=== PATIENT | male | born 1980 | race Asian ===

== ENCOUNTER 2019-01-25 06:11 | Inpatient (IN) | payer OTHER ==
[~2019-01-25] VITALS: Ht 160 cm; Wt 68.3 kg
[2019-01-25] MEDS ORDERED: SOD CHLORIDE 0.9% 1,000 ML IV STA ×2 (06:33→09:43)
[2019-01-25] MEDS ORDERED: PANTOPRAZOLE 40 MG INJ IV STA (06:33)
[2019-01-25] MEDS ORDERED: ONDANSETRON 4 MG INJ IV STA (06:38)
[2019-01-25] MEDS ORDERED: ONDANSETRON 4 MG INJ IV PRN ×2 (08:30→10:30)
[2019-01-25] MEDS ORDERED: ACETAMINOPHEN 325 MG TAB PO PRN (08:30)
[2019-01-25] MEDS ORDERED: CHLO25CA9 PO (10:04)
[2019-01-25] MEDS ORDERED: FAMO40TA5 PO (10:05)
[2019-01-25] MEDS ORDERED: CYAN1TAB16 PO (10:08)
[2019-01-25] MEDS ORDERED: SOD CHLORIDE 0.9% 1,000 ML IV SCH (10:09)
--- NOTE | 2019-01-25 10:09 | HP ---
Date/Time of Note Date/Time of Note DATE: 01/25/19 TIME: 10:09 Assessment/Plan VTE Prophylaxis Pharmacological prophylaxis: NA/contraindicated Pharm contraindication: bleeding Lines/Catheters IV Catheter Type (from [facility]): Peripheral IV Assessment/Plan Hospital Course 38-year-old male with history of alcoholism who came to the emergency room with multiple episodes of hematemesis and a few episodes of melena, who will be admitted to inpatient setting for further treatment and evaluation. 1. Hematemesis with melena. -Most probably from upper gastrointestinal bleeding. -Differentials include bleeding esophageal varices versus Rimma-Adame tear versus bleeding and gastric ulcers. -Monitor the H&H periodically. -Continue the patient on Protonix. -Gastroenterology consult has been obtained. -PRBC transfusion as indicated. 2. Transaminitis. -Most probably secondary to underlying alcoholism. -Obtain a hepatitis panel. -Avoid hepatotoxic medications. 3. Alcoholism. -Current heavy alcohol drinker. -Start the patient on tapering dose of Librium. -Start the patient on IV lorazepam for any active DTs. -Start the patient on multivitamins. -Obtain social work consult. Plan: The patient will be admitted to inpatient medical surgical floor. The patient will be started on a clear liquid diet. The patient will be started on DVT prophylaxis (bilateral SCDs) and gastrointestinal prophylaxis. The patient will remain a full code. Activities will be as tolerated. The rest of the patient's management will be based on the clinical course, inputs from consultants, and the results of diagnostic studies. Based on the patient's clinical presentation, he most probably requires at least 2 midnights' stay for further management and evaluation of his clinical presentation. The patient was seen in collaboration with Dr. Draper. Result Diagram: 01/25/19 0656 01/25/19 0656 Results 24hrs Laboratory Tests Test 01/25/19 06:56 White Blood Count 8.0 Red Blood Count 4.58 L Hemoglobin 14.2 Hematocrit 41.3 L Mean Corpuscular Volume 90.2 Mean Corpuscular Hemoglobin 31.0 Mean Corpuscular Hemoglobin Concent 34.4 Red Cell Distribution Width 12.2 Platelet Count 178 Mean Platelet Volume 9.5 Immature Granulocytes % 0.100 Neutrophils % 75.4 Lymphocytes % 16.4 Monocytes % 6.9 Eosinophils % 0.9 Basophils % 0.3 Nucleated Red Blood Cells % 0.0 Immature Granulocytes # 0.010 Neutrophils # 6.0 Lymphocytes # 1.3 Monocytes # 0.6 Eosinophils # 0.1 Basophils # 0.0 Nucleated Red Blood Cells # 0.0 Prothrombin Time 18.1 H Prothrombin Time Ratio 1.4 INR International Normalized Ratio 1.49 Activated Partial Thromboplast Time 28.1 Sodium Level 136 Potassium Level 4.4 Chloride Level 103 Carbon Dioxide Level 23 Anion Gap 10 Blood Urea Nitrogen 25 H Creatinine 0.66 Est Glomerular Filtrat Rate mL/min > 60 Glucose Level 113 Calcium Level 7.5 L Total Bilirubin 1.2 Direct Bilirubin 0.00 Indirect Bilirubin 1.2 H Aspartate Amino Transf (AST/SGOT) 711 H Alanine Aminotransferase (ALT/SGPT) 965 H Alkaline Phosphatase 44 Troponin I 0.068 Total Protein 6.4 Albumin 3.9 Globulin 2.50 Albumin/Globulin Ratio 1.56 Lipase 40 HPI/ROS Admit Date/Time Admit Date/Time Jan 25, 2019 at 08:17 Hx of Present Illness Reason for admission: Hematemesis. Consultants 1. Gastroenterology. This is a 38-year-old male with no significant past medical history other than alcoholism who came to the emergency room with chief complaint of multiple episodes of bloody vomiting. The patient verbalized that he started having vomiting since the morning of 01/25/2019 and had 5 episodes of fresh blood vomiting. He quantified each vomitus as a cup full. The patient also endorsed to 3 episodes of black stools on 01/25/2019. The patient verbalized that he has b een drinking heavily over the past 7 days. He had a prior history of alcoholism and quit in 2016. However, he had restarted in 2019. He verbalized that he has been in a lot of stress. The patient was also complaining of left lower quadrant abdominal pain. He denied any fevers or chills. He denied any dysuria or hematuria. He denied any chest pain or dyspnea. In the emergency room, the patient was noticed to have a hemoglobin hematocrit of 14.1 and 41.3 respectively. Patient was also noticed to have underlying transaminitis with hyperbilirubinemia. He was treated with a single dose of IV Protonix along with IV fluids in the emergency room. ROS Constitutional: poor po Eyes: no complaints ENT: no complaints Respiratory: no complaints Cardiovascular: no complaints Gastrointestinal: pain, blood, vomiting Genitourinary: no complaints Musculoskeletal: no complaints Skin: no complaints Neurologic: no complaints Endocrine: no complaints Lymphatic: no complaints Psychological: no complaints Immunologic: no complaints PMH/Family/Social Past Medical History 1. Alcoholism. Medications Current Medications Ondansetron HCl (Zofran Inj) 4 mg BRIDGE ORDER PRN IV NAUSEA/VOMITING; Start 01/25/19 at 08:30; Stop 01/26/19 at 08:29 Acetaminophen (Tylenol Tab) 650 mg ER BRIDGE PRN PO .MILD PAIN 1-3 OR TEMP; Start 01/25/19 at 08:30; Stop 01/26/19 at 08:29 Sodium Chloride 1,000 ml @ 1,000 mls/hr Q1H STAT IV Last administered on 01/25/19at 09:46; Admin Dose 1,000 MLS/HR; Start 01/25/19 at 09:43; Stop 01/25/19 at 10:42 Coded Allergies: Penicillins (Verified Allergy, Unknown, 01/25/19) Past Surgical History Past Surgical Hx: no surgical history Family History Significant Family History: no pertinent family hx Social History Works as a [employer] at [employer]. Lives at home with family. Originally from [facility]. Alcohol Use: heavy Smoking Status: Former smoker Drug Use: none Exam/Review of Systems Vital Signs Vitals Vital Signs Date Temp Pulse Resp B/P (MAP) Pulse Ox O2 O2 Flow FiO2 Time Delivery Rate 01/25/19 118 20 124/87 98 Room Air 09:53 (99) 01/25/19 97.4 06:20 Exam Exam General: Adequately build 38 year-old male lying in bed in no apparent distress. HEENT: Normocephalic, atraumatic. Eyes: Anicteric sclerae, conjunctivae clear. ENT: Nasal septum midline, oral mucosa moist. Neck supple, no JVD noticed. Respiratory: Bilaterally clear breath sounds. No use of accessory muscles of respiration. No adventitious breath sounds. Cardiovascular: S1, S2 heard. Tachycardia. Abdomen: Soft and nondistended. Minimal left lower quadrant tenderness. Bowel sounds positive in all 4 quadrants. Genitourinary: Deferred. Extremities: No cyanosis, no clubbing, no edema. Peripheral pulses palpable. Neurologic: Cranial nerves II through XII grossly intact. The patient is awake, alert, and oriented. Skin: Normal skin turgor. No skin rashes. Additional Comments 12-Lead EKG Sinus tachycardia. DANIKA YI NP Jan 25, 2019 10:09
[2019-01-25] MEDS ORDERED: MAG355OR15 PO (10:10)
[2019-01-25 10:15] VITALS: BP 115/72; PULSE 115; RESP 17
[2019-01-25 10:21] VITALS: Ht 160 cm; Wt 68.3 kg
[2019-01-25] MEDS ORDERED: NACL 0.9% 3 ML SYG IV SCH (10:30)
[2019-01-25] MEDS ORDERED: LORAZEPAM 2 MG INJ IV PRN (10:30)
[2019-01-25] MEDS: MULTIVITAMINS 10 ML, THIAMINE 100 MG, FOLIC ACID 1 MG in SOD CHLORIDE 0.9% 1,000 ML IVPB SCH (11:22)
[2019-01-25] MEDS: CHLORDIAZEPOXIDE 25 MG CAP PO SCH ×3 (12:19→20:24)
--- NOTE | 2019-01-25 13:21 | ERD ---
ER Documentation Chief Complaint Chief Complaint states vomiting blood since last night HPI Patient is a 38-year-old male with no medical problems who presents with vomiting. Please note that a [place] [employer] commander was used for the entire history and physical exams. The patient's symptoms started at 4 AM. He was vomiting blood. He had this happened to him once 2 years ago. He admits to drinking alcohol over the past week. He had been sober for 3 years prior. He had bright red and dark blood. He denies endoscopy or colonoscopy. Upon review of old medical records this is the patient's first visit to the emergency department. He does not currently have a primary doctor. ROS All systems reviewed and are negative except as per history of present illness. Medications Home Meds Reported Medications Mag Hydrox/Al Hydrox/Simeth (Antacid Liquid) 355 Ml Oral.susp, 30 ML PO PC MEALS, BOT 01/25/19 Cyanocobalamin/FA/Pyridoxine (Folbee Tablet) 1 Each Tablet, 1 EACH PO DAILY, TAB SUGAR & LACTOSE FREE 01/25/19 Famotidine* (Famotidine*) 40 Mg Tablet, 20 MG PO BID, #60 TAB 01/25/19 Chlordiazepoxide* (Chlordiazepoxide*) 25 Mg Capsule, 25 MG PO QID, CAP 01/25/19 Allergies Allergies: Coded Allergies: Penicillins (Verified Allergy, Unknown, 01/25/19) PMhx/Soc Medical and Surgical Hx: pt denies Medical Hx, pt denies Surgical Hx History of Surgery: Yes Anesthesia Reaction: No Hx Neurological Disorder: No Hx Respiratory Disorders: No Hx Cardiac Disorders: No Hx Psychiatric Problems: No Hx Miscellaneous Medical Probl: No Hx Alcohol Use: Yes (liquior everyday) Hx Substance Use: No Hx Tobacco Use: Yes (everyday) Smoking Status: Current every day smoker FmHx Family History: No diabetes Physical Exam Vitals Vital Signs Date Temp Pulse Resp B/P (MAP) Pulse Ox O2 O2 Flow FiO2 Time Delivery Rate 01/25/19 131 22 121/89 98 Room Air 07:07 (100) 01/25/19 97.4 147 18 151/91 97 06:20 (111) Physical Exam Const: No acute distress Head: Atraumatic Eyes: Normal Conjunctiva ENT: Normal External Ears, Nose and Mouth. Neck: Full range of motion. No meningismus. Resp: Clear to auscultation bilaterally Cardio: Tachycardic rate without murmur Abd: Soft, non tender, non distended. Normal bowel sounds Skin: No petechiae or rashes Back: No midline or flank tenderness Ext: No cyanosis, or edema Neur: Awake and alert Psych: Normal Mood and Affect Result Diagram: 01/25/19 0656 01/25/19 0656 Results 24 hrs Laboratory Tests Test 01/25/19 06:54 01/25/19 06:56 Ethyl Alcohol Level < 10.0 mg/dl White Blood Count 8.0 10^3/ul Red Blood Count 4.58 10^6/ul Hemoglobin 14.2 g/dl Hematocrit 41.3 % Mean Corpuscular Volume 90.2 fl Mean Corpuscular Hemoglobin 31.0 pg Mean Corpuscular Hemoglobin Concent 34.4 g/dl Red Cell Distribution Width 12.2 % Platelet Count 178 10^3/UL Mean Platelet Volume 9.5 fl Immature Granulocytes % 0.100 % Neutrophils % 75.4 % Lymphocytes % 16.4 % Monocytes % 6.9 % Eosinophils % 0.9 % Basophils % 0.3 % Nucleated Red Blood Cells % 0.0 /100WBC Immature Granulocytes # 0.010 10^3/ul Neutrophils # 6.0 10^3/ul Lymphocytes # 1.3 10^3/ul Monocytes # 0.6 10^3/ul Eosinophils # 0.1 10^3/ul Basophils # 0.0 10^3/ul Nucleated Red Blood Cells # 0.0 10^3/ul Prothrombin Time 18.1 Sec Prothrombin Time Ratio 1.4 INR International Normalized Ratio 1.49 Activated Partial Thromboplast Time 28.1 Sec Sodium Level 136 mmol/L Potassium Level 4.4 mmol/L Chloride Level 103 mmol/L Carbon Dioxide Level 23 mmol/L Anion Gap 10 Blood Urea Nitrogen 25 mg/dl Creatinine 0.66 mg/dl Est Glomerular Filtrat Rate mL/min > 60 mL/min Glucose Level 113 mg/dl Calcium Level 7.5 mg/dl Total Bilirubin 1.2 mg/dl Direct Bilirubin 0.00 mg/dl Indirect Bilirubin 1.2 mg/dl Aspartate Amino Transf (AST/SGOT) 711 IU/L Alanine Aminotransferase (ALT/SGPT) 965 IU/L Alkaline Phosphatase 44 IU/L Troponin I 0.068 ng/ml Total Protein 6.4 g/dl Albumin 3.9 g/dl Globulin 2.50 g/dl Albumin/Globulin Ratio 1.56 Lipase 40 U/L Current Medications Medications Dose Sig/Jose Start Time Status Last (Trade) Ordered Route PRN Stop Time Admin Dose Reason Admin Sodium 1,000 ml @ Q1H STAT 01/25/19 DC 01/25/19 Chloride 1,000 mls/hr IV 06:33 01/25/19 07:17 07:32 40 mg ONCE STAT 01/25/19 DC 01/25/19 Pantoprazole IV 06:33 01/25/19 07:16 (Protonix 06:35 Iv) Ondansetron 4 mg ONCE STAT 01/25/19 DC 01/25/19 HCl (Zofran IV 06:38 01/25/19 07:16 Inj) 06:39 Procedures/MDM EKG read by me: Rate/Rhythm: Sinus tachycardia Intervals: Normal Impression: Tachycardia without ischemia Patient is a 38-year-old male with history of alcohol abuse who presents with vomiting blood. The patient has a normal hemoglobin currently. The patient was given Protonix, Zofran, and 2 L of normal saline for fluid resuscitation. The patient will be admitted to the care of the panel team. He has elevated LFTs and a slightly elevated INR. The patient will be admitted to the care of the panel team to a medical surgical bed. Departure Diagnosis: Primary Impression: Hematemesis Nausea presence: with nausea Qualified Codes: K92.0 - Hematemesis Condition: NOE Mullen MD Jan 25, 2019 13:21
--- NOTE | 2019-01-25 14:12 | CONS ---
Assessment/Plan Assessment/Plan Assessment/Plan (Daily) Assessment: Melena/hematemesis Left lower quadrant pain History of constipation Currently having diarrhea with melena Transaminitis Mild hyperbilirubinemia Alcohol abuse Plan: CT scan with IV and p.o. contrast -for left lower quadrant pain EGD on Saturday Continue clear liquid diet and advance as tolerated Zofran [id number] Protonix twice daily Start Carafate Monitor H&H Transfuse for hemoglobin less than 7.5 Patient seen in collaboration with Dr. Rivero Consultation Date/Type/Reason Admit Date/Time Jan 25, 2019 at 08:17 Date of Consultation: Jan 25, 2019 Type of Consult GI Reason for Consultation Emesis/melena Date/Time of Note DATE: 01/25/19 TIME: 14:02 Hx of Present Illness This is a 38-year-old male with a history of alcoholism who was admitted for melena and hematemesis. Patient reports his symptoms started at 4 AM this morning with melena, hematemesis and diarrhea which prompted him to come to the hospital. Patient denies any past medical history. Patient reportedly had an EGD done in 2015 with no significant findings. Patient is complaining of left lower quadrant pain on and off for 2 years. Patient reports having 6 episodes of vomiting today. Currently denies nausea, constipation, fever or abdominal pain. Hemoglobin is stable 14.2. Continue the current transaminitis noted, bilirubin is 1.2. Patient states he drinks 3 bottles of beer a day or 5 shots of liquor a day. The plan is to continue Protonix, start Carafate, change Zofran to [id number]. Continue on clear liquid diet. Plan for EGD on Saturday. Risks and benefits of the procedure have been discussed with the patient. Patient is agreeable to the procedure. Will order abdominal CT with contrast to rule out diverticulitis. Gastrointestinal: no complaints (see ) Past Medical History Alcohol abuse Home Meds Reported Medications Mag Hydrox/Al Hydrox/Simeth (Antacid Liquid) 355 Ml Oral.susp, 30 ML PO PC MEALS, BOT 01/25/19 Cyanocobalamin/FA/Pyridoxine (Folbee Tablet) 1 Each Tablet, 1 EACH PO DAILY, TAB SUGAR & LACTOSE FREE 01/25/19 Famotidine* (Famotidine*) 40 Mg Tablet, 20 MG PO BID, #60 TAB 01/25/19 Chlordiazepoxide* (Chlordiazepoxide*) 25 Mg Capsule, 25 MG PO QID, CAP 01/25/19 Medications Current Medications Ondansetron HCl (Zofran Inj) 4 mg BRIDGE ORDER PRN IV NAUSEA/VOMITING; Start 01/25/19 at 08:30; Stop 01/26/19 at 08:29 Acetaminophen (Tylenol Tab) 650 mg ER BRIDGE PRN PO .MILD PAIN 1-3 OR TEMP; Start 01/25/19 at 08:30; Stop 01/26/19 at 08:29 Sodium Chloride 1,000 ml @ 75 mls/hr [id number] IV Last administered on 01/25/19at 10:41; Admin Dose 75 MLS/HR; Start 01/25/19 at 10:09; Stop 01/25/19 at 23:28 IV Flush (NS 3 ml) 3 ml PER PROTOCOL IV ; Start 01/25/19 at 10:30 Ondansetron HCl (Zofran Inj) 4 mg Q6H PRN IV NAUSEA/VOMITING; Start 01/25/19 at 10:30 Chlordiazepoxide (Librium) 25 mg QID PO Last administered on 01/25/19at 12:19; Admin Dose 25 MG; Start 01/25/19 at 13:00 Lorazepam (Ativan) 1 mg Q2H PRN IV Anxiety; Start 01/25/19 at 10:30 Multivitamins 10 ml/Thiamine HCl 100 mg/Folic Acid 1 mg/Sodium Chloride 1,011.2 ml @ 125 mls/ hr DAILY@09 IVPB Last administered on 01/25/19at 11:22; Admin Dose 125 MLS/HR; Start 01/25/19 at 11:00 Pantoprazole (Protonix Iv) 40 mg BID@06,18 IV ; Start 01/25/19 at 18:00 Allergies: Coded Allergies: Penicillins (Verified Allergy, Unknown, 01/25/19) Past Surgical History Past Surgical Hx: no surgical history Social History Alcohol Use: heavy Smoking Status: Current every day smoker Drug Use: none Exam/Review of Systems Exam Vitals Vital Signs Date Temp Pulse Resp B/P (MAP) Pulse Ox O2 O2 Flow FiO2 Time Delivery Rate 01/25/19 98.5 115 17 115/72 98 Room Air 10:15 (86) Exam PHYSICAL EXAMINATION: GENERAL: Well developed, obese, well nourished, alert & oriented x 3, in no acute distress SKIN: No lesions, no stigmata chronic liver disease, no evidence of bleeding diathesis LYMPHATIC: No palpable lymphadenopathy. HEAD: Normocephalic, atraumatic, no tenderness. EYES: Pupils equal reactive to light and accommodation, full extraocular movements, sclera clear, non-icteric, no discharge. EARS/NOSE AND THROAT: Ears normal, nose normal, oropharynx normal, oral membranes well hydrated without lesions. NECK: Supple, no masses, thyroid normal, JVP within normal limits, carotids normal without bruits. CHEST: Inspection within normal limits. CARDIOVASCULAR: Heart: Regular rate and rhythm, no murmurs, gallops or rubs. Peripheral pulses present within normal limits, no cyanosis, clubbing or edemas. No pulsatile abdominal mass RESPIRATORY: Lungs clear to auscultation and percussion, no wheezing, no rubs GASTROINTESTINAL AND LIVER: Abdomen: Soft, non tenderness, non-distended, no hernias, no masses, no organomegaly, no ascites, no guarding, no rebound tenderness, normoactive bowel sounds. Rectal: Deferred. GENITOURINARY: [Male genitalia within normal limits. EXTREMITIES: No cyanosis, clubbing or edema. Results Result Diagram: 01/25/19 0656 01/25/19 0656 Results 24hrs Laboratory Tests Test 01/25/19 06:54 01/25/19 06:56 01/25/19 10:50 01/25/19 13:39 Ethyl Alcohol Level < 10.0 H White Blood Count 8.0 Red Blood Count 4.58 L Hemoglobin 14.2 Hematocrit 41.3 L Mean Corpuscular Volume 90.2 Mean Corpuscular 31.0 Hemoglobin Mean Corpuscular 34.4 Hemoglobin Concent Red Cell Distribution 12.2 Width Platelet Count 178 Mean Platelet Volume 9.5 Immature Granulocytes % 0.100 Neutrophils % 75.4 Lymphocytes % 16.4 Monocytes % 6.9 Eosinophils % 0.9 Basophils % 0.3 Nucleated Red Blood 0.0 Cells % Immature Granulocytes # 0.010 Neutrophils # 6.0 Lymphocytes # 1.3 Monocytes # 0.6 Eosinophils # 0.1 Basophils # 0.0 Nucleated Red Blood 0.0 Cells # Prothrombin Time 18.1 H Prothrombin Time Ratio 1.4 INR International 1.49 Normalized Ratio Activated 28.1 Partial Thromboplast Time Sodium Level 136 Potassium Level 4.4 Chloride Level 103 Carbon Dioxide Level 23 Anion Gap 10 Blood Urea Nitrogen 25 H Creatinine 0.66 Est Glomerular Filtrat > 60 Rate mL/min Glucose Level 113 Calcium Level 7.5 L Total Bilirubin 1.2 Direct Bilirubin 0.00 Indirect Bilirubin 1.2 H Aspartate Amino 711 H Transf (AST/SGOT) Alanine 965 H Aminotransferase (ALT/SG PT) Alkaline Phosphatase 44 Troponin I 0.068 Total Protein 6.4 Albumin 3.9 Globulin 2.50 Albumin/Globulin Ratio 1.56 Lipase 40 Urine Opiates Screen Negative Urine Barbiturates Negative Urine Amphetamines Negative Screen Urine Benzodiazepines Negative Screen Urine Cocaine Screen Negative Urine Cannabinoids Negative Hepatitis B Surface Pending Antigen Hepatitis B Core Pending Total Antibody Hepatitis C Antibody Pending Medications Medication Current Medications Ondansetron HCl (Zofran Inj) 4 mg BRIDGE ORDER PRN IV NAUSEA/VOMITING; Start 01/25/19 at 08:30; Stop 01/26/19 at 08:29 Acetaminophen (Tylenol Tab) 650 mg ER BRIDGE PRN PO .MILD PAIN 1-3 OR TEMP; Start 01/25/19 at 08:30; Stop 01/26/19 at 08:29 Sodium Chloride 1,000 ml @ 75 mls/hr [id number] IV Last administered on 01/25/19at 10:41; Admin Dose 75 MLS/HR; Start 01/25/19 at 10:09; Stop 01/25/19 at 23:28 IV Flush (NS 3 ml) 3 ml PER PROTOCOL IV ; Start 01/25/19 at 10:30 Ondansetron HCl (Zofran Inj) 4 mg Q6H PRN IV NAUSEA/VOMITING; Start 01/25/19 at 10:30 Chlordiazepoxide (Librium) 25 mg QID PO Last administered on 01/25/19at 12:19; Admin Dose 25 MG; Start 01/25/19 at 13:00 Lorazepam (Ativan) 1 mg Q2H PRN IV Anxiety; Start 01/25/19 at 10:30 Multivitamins 10 ml/Thiamine HCl 100 mg/Folic Acid 1 mg/Sodium Chloride 1,011.2 ml @ 125 mls/ hr DAILY@09 IVPB Last administered on 01/25/19at 11:22; Admin Dose 125 MLS/HR; Start 01/25/19 at 11:00 Pantoprazole (Protonix Iv) 40 mg BID@06,18 IV ; Start 01/25/19 at 18:00 MONSTER HEARD NP Jan 25, 2019 14:12
[2019-01-25 15:33] VITALS: BP 116/74; PULSE 123; RESP 18
[2019-01-25] MEDS ORDERED: IOHEXOL 14.3 MG(I)/ML (ADULT) BTL PO ONE (16:00)
[2019-01-25] MEDS ORDERED: SUCRALFATE (100 MG/ML) 10ML CUP GTB SCH (17:00)
[2019-01-25] MEDS: ONDANSETRON 4 MG INJ IV SCH (17:10)
[2019-01-25] MEDS: PANTOPRAZOLE 40 MG INJ IV SCH (17:11)
[2019-01-25] MEDS ORDERED: SOD CHLORIDE 0.9% 100 ML ONE (18:39)
[2019-01-25] MEDS ORDERED: IOHEXOL 300MG/ML 150 ML BTL ONE (18:39)
[2019-01-25 20:00] VITALS: BP 110/70; PULSE 118; RESP 19
[2019-01-25] MEDS: SUCRALFATE (100 MG/ML) 10ML CUP PO SCH (20:24)
[2019-01-26] VITALS (10 sets, daily range): BP systolic 94–114; BP diastolic 55–68; PULSE 2–100; RESP 11–20
[2019-01-26] MEDS: ONDANSETRON 4 MG INJ IV SCH ×2 (00:24→05:26)
[2019-01-26] MEDS ORDERED: morphine 2 MG INJ IV PRN (01:00)
[2019-01-26] MEDS: PANTOPRAZOLE 40 MG INJ IV SCH ×2 (05:26→18:32)
[2019-01-26] MEDS ORDERED: SOD CHLORIDE 0.9% 250 ML IV* ONE (06:38)
[2019-01-26] MEDS: MULTIVITAMINS 10 ML, THIAMINE 100 MG, FOLIC ACID 1 MG in SOD CHLORIDE 0.9% 1,000 ML IVPB SCH (08:33)
[2019-01-26] MEDS: CHLORDIAZEPOXIDE 25 MG CAP PO SCH ×4 (08:33→20:34)
[2019-01-26] MEDS: SUCRALFATE (100 MG/ML) 10ML CUP PO SCH ×4 (08:33→20:34)
--- NOTE | 2019-01-26 15:17 | PN ---
Date/Time of Note Date/Time of Note DATE: 01/26/19 TIME: 15:14 Assessment/Plan VTE Prophylaxis Risk score (from Ns)>0 risk: 1 [place] [facility] [place] Pharmacological prophylaxis: NA/contraindicated Pharm contraindication: bleeding Lines/Catheters IV Catheter Type (from [facility]): Peripheral IV Urinary Cath still in place: No Assessment/Plan Hospital Course 38-year-old male with history of alcoholism who came to the emergency room with multiple episodes of hematemesis and a few episodes of melena, who will be admitted to inpatient setting for further treatment and evaluation. 1. Hematemesis with melena. -Most probably from upper gastrointestinal bleeding. -Differentials include bleeding esophageal varices versus Rimma-Adame tear versus bleeding and gastric ulcers. -Monitor the H&H periodically. -Continue the patient on Protonix. -Gastroenterology consult has been obtained, EGD on Saturday -PRBC transfusion as indicated. 2. Transaminitis. -Most probably secondary to underlying alcoholism. -Viral hepatitis panel is negative -Avoid hepatotoxic medications. 3. Alcoholism. -Current heavy alcohol drinker. -Continue tapering dose of Librium. -Continue IV lorazepam for any active DTs. -Continue multivitamins. -Social work consult. Result Diagram: 01/26/19 0507 01/26/19 0507 Results 24hrs Laboratory Tests Test 01/25/19 18:27 01/26/19 00:16 01/26/19 05:07 01/26/19 05:08 Hemoglobin 7.8 L 7.5 L 6.9 *L Hematocrit 22.2 L 21.1 L 19.8 L White Blood Count 8.0 Red Blood Count 2.18 #L Mean Corpuscular Volume 90.8 Mean Corpuscular 31.7 Hemoglobin Mean Corpuscular 34.8 Hemoglobin Concent Red Cell Distribution 12.1 Width Platelet Count 119 #L Mean Platelet Volume 10.8 H Immature Granulocytes % 0.400 Neutrophils % 49.9 Segmented Neutrophils 60 % (Manual) Band Neutrophils % 1 (Manual) Lymphocytes % 42.3 Lymphocytes % (Manual) 36 Monocytes % 6.0 Monocytes % (Manual) 2 Eosinophils % 1.2 Eosinophils % (Manual) 1 Basophils % 0.2 Nucleated Red Blood 0.0 Cells % Immature Granulocytes # 0.030 Neutrophils # 4.0 Neutrophils # (Manual) 4.8 Band Neutrophils # 0.0 Lymphocytes (Manual) 2.8 Lymphocytes # 3.4 H Monocytes # 0.5 Monocytes # (Manual) 0.1 L Eosinophils # 0.1 Basophils # 0.0 Nucleated Red Blood 0.0 Cells # Platelet Estimate NORMAL Sodium Level 136 Potassium Level 3.5 Chloride Level 108 Carbon Dioxide Level 25 Anion Gap 3 L Blood Urea Nitrogen 22 H Creatinine 0.76 Est Glomerular Filtrat > 60 Rate mL/min Glucose Level 93 Calcium Level 6.5 L Phosphorus Level 2.2 L Magnesium Level 2.3 Total Bilirubin 0.9 Direct Bilirubin 0.00 Indirect Bilirubin 0.9 Aspartate Amino 148 #H Transf (AST/SGOT) Alanine 372 H Aminotransferase (ALT/SG PT) Alkaline Phosphatase 32 L Total Protein 4.4 #L Albumin 2.2 #L Globulin 2.20 Albumin/Globulin Ratio 1.00 Triglycerides Level 335 H Cholesterol Level 56 L LDL Cholesterol, Calculated HDL Cholesterol 11 L Cholesterol/HDL Ratio 5.0 Hepatitis B Surface NEGATIVE Antigen Hepatitis C Antibody NEGATIVE Subjective 24 Hr Interval Summary Constitutional: no complaints Exam/Review of Systems Exam Vitals Vital Signs Date Temp Pulse Resp B/P (MAP) Pulse Ox O2 O2 Flow FiO2 Time Delivery Rate 01/26/19 98.0 82 18 98/62 (74) 100 Room Air 08:00 Intake and Output 01/25/19 01/25/19 01/26/19 1515:00 23:00 07:00 IntakeIntake Total 120 ml 2560 ml 400 ml OutputOutput Total 750 ml 200 ml BalanceBalance -630 ml 2360 ml 400 ml Constitutional: alert, oriented Respiratory: clear to auscultation Cardiovascular: regular rate and rhythm Gastrointestinal: soft; No distended Musculoskeletal: nl extremities to inspection Results Results 24hrs Laboratory Tests Test 01/25/19 18:27 01/26/19 00:16 01/26/19 05:07 01/26/19 05:08 Hemoglobin 7.8 L 7.5 L 6.9 *L Hematocrit 22.2 L 21.1 L 19.8 L White Blood Count 8.0 Red Blood Count 2.18 #L Mean Corpuscular Volume 90.8 Mean Corpuscular 31.7 Hemoglobin Mean Corpuscular 34.8 Hemoglobin Concent Red Cell Distribution 12.1 Width Platelet Count 119 #L Mean Platelet Volume 10.8 H Immature Granulocytes % 0.400 Neutrophils % 49.9 Segmented Neutrophils 60 % (Manual) Band Neutrophils % 1 (Manual) Lymphocytes % 42.3 Lymphocytes % (Manual) 36 Monocytes % 6.0 Monocytes % (Manual) 2 Eosinophils % 1.2 Eosinophils % (Manual) 1 Basophils % 0.2 Nucleated Red Blood 0.0 Cells % Immature Granulocytes # 0.030 Neutrophils # 4.0 Neutrophils # (Manual) 4.8 Band Neutrophils # 0.0 Lymphocytes (Manual) 2.8 Lymphocytes # 3.4 H Monocytes # 0.5 Monocytes # (Manual) 0.1 L Eosinophils # 0.1 Basophils # 0.0 Nucleated Red Blood 0.0 Cells # Platelet Estimate NORMAL Sodium Level 136 Potassium Level 3.5 Chloride Level 108 Carbon Dioxide Level 25 Anion Gap 3 L Blood Urea Nitrogen 22 H Creatinine 0.76 Est Glomerular Filtrat > 60 Rate mL/min Glucose Level 93 Calcium Level 6.5 L Phosphorus Level 2.2 L Magnesium Level 2.3 Total Bilirubin 0.9 Direct Bilirubin 0.00 Indirect Bilirubin 0.9 Aspartate Amino 148 #H Transf (AST/SGOT) Alanine 372 H Aminotransferase (ALT/SG PT) Alkaline Phosphatase 32 L Total Protein 4.4 #L Albumin 2.2 #L Globulin 2.20 Albumin/Globulin Ratio 1.00 Triglycerides Level 335 H Cholesterol Level 56 L LDL Cholesterol, Calculated HDL Cholesterol 11 L Cholesterol/HDL Ratio 5.0 Hepatitis B Surface NEGATIVE Antigen Hepatitis C Antibody NEGATIVE Medications Medication Current Medications IV Flush (NS 3 ml) 3 ml PER PROTOCOL IV ; Start 01/25/19 at 10:30 Ondansetron HCl (Zofran Inj) 4 mg Q6H PRN IV NAUSEA/VOMITING; Start 01/25/19 at 10:30 Chlordiazepoxide (Librium) 25 mg QID PO Last administered on 01/26/19at 12:36; Admin Dose 25 MG; Start 01/25/19 at 13:00 Lorazepam (Ativan) 1 mg Q2H PRN IV Anxiety; Start 01/25/19 at 10:30 Multivitamins 10 ml/Thiamine HCl 100 mg/Folic Acid 1 mg/Sodium Chloride 1,011.2 ml @ 125 mls/ hr DAILY@09 IVPB Last administered on 01/26/19at 08:33; Admin Dose 125 MLS/HR; Start 01/25/19 at 11:00 Pantoprazole (Protonix Iv) 40 mg BID@06,18 IV Last administered on 01/26/19at 05:26; Admin Dose 40 MG; Start 01/25/19 at 18:00 Sucralfate (Carafate Susp) 1 gm QID PO Last administered on 01/26/19at 12:36; Admin Dose 1 GM; Start 01/25/19 at 20:10 Morphine Sulfate (morphine) 2 mg Q2H PRN IV SEVERE PAIN LEVEL 7-10 Last administered on 01/26/19at 01:05; Admin Dose 2 MG; Start 01/26/19 at 01:00 JT LAI Jan 26, 2019 15:17
[2019-01-26] MEDS ORDERED: PROPOFOL 20 ML ONE (17:13)
--- NOTE | 2019-01-26 17:13 | PREAC ---
Date/Time of Note Date/Time of Note DATE: 01/26/19 TIME: 17:09 Anesthesia Eval and Record Evaluation Time Pre-Procedure Interview DATE: 01/26/19 TIME: 17:09 Age 38 Sex male NPO: 8 hrs Preoperative diagnosis melena Planned procedure EGD Past Medical History Past Medical History: None Heme: Anemia Surgery & Anesthesia Issues No known issue Meds Anticoagulation: No Beta Mariam within 24 hr: No Reason Beta Mariam not given: Pt. not on B-Mariam Reported Medications Mag Hydrox/Al Hydrox/Simeth (Antacid Liquid) 355 Ml Oral.susp, 30 ML PO PC MEALS, BOT 01/25/19 Cyanocobalamin/FA/Pyridoxine (Folbee Tablet) 1 Each Tablet, 1 EACH PO DAILY, TAB SUGAR & LACTOSE FREE 01/25/19 Famotidine* (Famotidine*) 40 Mg Tablet, 20 MG PO BID, #60 TAB 01/25/19 Chlordiazepoxide* (Chlordiazepoxide*) 25 Mg Capsule, 25 MG PO QID, CAP 01/25/19 Current Medications IV Flush (NS 3 ml) 3 ml PER PROTOCOL IV ; Start 01/25/19 at 10:30 Ondansetron HCl (Zofran Inj) 4 mg Q6H PRN IV NAUSEA/VOMITING; Start 01/25/19 at 10:30 Chlordiazepoxide (Librium) 25 mg QID PO Last administered on 01/26/19at 12:36; Admin Dose 25 MG; Start 01/25/19 at 13:00 Lorazepam (Ativan) 1 mg Q2H PRN IV Anxiety; Start 01/25/19 at 10:30 Multivitamins 10 ml/Thiamine HCl 100 mg/Folic Acid 1 mg/Sodium Chloride 1,011.2 ml @ 125 mls/ hr DAILY@09 IVPB Last administered on 01/26/19at 08:33; Admin Dose 125 MLS/HR; Start 01/25/19 at 11:00 Pantoprazole (Protonix Iv) 40 mg BID@06,18 IV Last administered on 01/26/19at 05:26; Admin Dose 40 MG; Start 01/25/19 at 18:00 Sucralfate (Carafate Susp) 1 gm QID PO Last administered on 01/26/19at 12:36; Admin Dose 1 GM; Start 01/25/19 at 20:10 Morphine Sulfate (morphine) 2 mg Q2H PRN IV SEVERE PAIN LEVEL 7-10 Last administered on 01/26/19at 01:05; Admin Dose 2 MG; Start 01/26/19 at 01:00 Meds reviewed: Yes Allergies Coded Allergies: Penicillins (Verified Allergy, Unknown, 01/25/19) Allergies Reviewed: Yes Labs/Studies Labs Reviewed: Reviewed by anesthesiologist Result Diagram: 01/26/19 0507 01/26/19 0507 Laboratory Tests 01/26/19 05:07 test: N/A Studies: ECG (n/a), CXR (n/a) Pre-procedure Exam Last vitals Vital Signs Date Temp Pulse Resp B/P (MAP) Pulse Ox O2 O2 Flow FiO2 Time Delivery Rate 01/26/19 98.9 2 19 104/66 99 Room Air 14:00 (79) Airway: Adequate mouth opening Mallampati: Mallampati I Teeth: Normal Lung: Normal Heart: Normal ASA Physical Status ASA physical status: 1 Emergency: None Planned Anesthetic General/MAC: MAC Planned Pain Management Parenteral pain med Pre-operative Attestations Prior to commencing anesthesia and surgery, the patient was re-evaluated, there was verification of: *The patient's identity *The results of appropriate recent lab work and preoperative vital signs *The above evaluation not changing prior to induction *Anesthetic plan, risk benefits, alternative and complications discussed with patient/family; questions answered; patient/family understands, accepts and wishes to proceed. RUTH ROSARIO MD Jan 26, 2019 17:13
[2019-01-26] MEDS ORDERED: FENTAnyl 50 MCG/ML VIAL ONE (17:14)
[2019-01-26] MEDS ORDERED: ONDANSETRON 4 MG INJ IV PRN (17:30)
--- NOTE | 2019-01-26 17:40 | HPN ---
Date/Time of Note Date/Time of Note DATE: 01/26/19 BIJU OHARA MD Jan 26, 2019 17:40
--- NOTE | 2019-01-26 18:23 | PAC ---
Date/Time of Note Date/Time of Note DATE: 01/26/19 TIME: 18:23 Post-Anesthesia Notes Post-Anesthesia Note Last documented vital signs Vital Signs Date Temp Pulse Resp B/P (MAP) Pulse Ox O2 O2 Flow FiO2 Time Delivery Rate 01/26/19 99.0 90 13 111/62 98 Room Air 18:04 (78) 01/26/19 3.0 18:00 01/26/19 99.0 17:44 Activity: WNL Respiratory function: WNL Cardiovascular function: WNL Mental status: Baseline Pain reasonably controlled: Yes Hydration appropriate: Yes Nausea/Vomiting absent: No RUTH ROSARIO MD Jan 26, 2019 18:23
[2019-01-27 02:00] VITALS: BP 98/58; RESP 19
[2019-01-27] MEDS: PANTOPRAZOLE 40 MG INJ IV SCH ×2 (06:12→17:24)
[2019-01-27 08:20] VITALS: BP 101/54; PULSE 94; RESP 18
[2019-01-27] MEDS: SUCRALFATE (100 MG/ML) 10ML CUP PO SCH ×4 (08:51→20:25)
[2019-01-27] MEDS: MULTIVITAMINS 10 ML, THIAMINE 100 MG, FOLIC ACID 1 MG in SOD CHLORIDE 0.9% 1,000 ML IVPB SCH (08:51)
[2019-01-27] MEDS: CHLORDIAZEPOXIDE 25 MG CAP PO SCH ×3 (08:51→17:24)
[2019-01-27] MEDS ORDERED: POTASSIUM CHLORIDE 100 ML IVPB SCH (12:00)
[2019-01-27 14:00] VITALS: BP 93/48; PULSE 89; RESP 18
[2019-01-27] MEDS ORDERED: POTASSIUM CHLORIDE (SR) 20 MEQ TAB PO ONE (14:00)
--- NOTE | 2019-01-27 16:43 | PN ---
Date/Time of Note Date/Time of Note DATE: 01/27/19 TIME: 16:05 Assessment/Plan VTE Prophylaxis Risk score (from Nsg)>0 risk: 1 SCD applied (from Nsg): Yes Pharmacological prophylaxis: other (scds) Lines/Catheters IV Catheter Type (from Nrs): Peripheral IV Urinary Cath still in place: No Assessment/Plan Hospital Course Assessment: Melena/hematemesis/anemia EGD 01/26/2019 Linear 5 mm ulceration fundus of the stomach. No stigmata of recent bleeding. Severe erosive gastritis. Rule out H. pylori infection. Biopsies obtained Moderate duodenitis Biopsy shows chronic gastritis-bacterial compatible with H. pylori and there is no evidence of malignancy H.pylori- gastritis Left lower quadrant pain -CT abd/pelvis- unremarkable. No mass, lymphadenopathy, or focal acute inflammatory process is identified History of constipation Currently having diarrhea with melena-resolved Transaminitis-trending down -Hepatitis B core antibody reactive -Hepatitis C negative -RAMON, ASMA, AMA- Negative Mild hyperbilirubinemia- resolved Alcohol abuse-discussed cessation of alcohol use Plan: Pathology positive for H. pylori recommend triple therapy-with substitution of amoxicillin with metronidazole given patient's penicillin allergy: PPI 40 mg twice daily x14 days Clarithromycin 500 mg twice daily x14 days Metronidazole 500 mg 3 times daily x14 days RX written and in chart Patient will need to follow-up with GI as we will need to repeat EGD 6 weeks to verify ulcer healing and to recheck UBT after treatment to verify eradication of H. pylori treatment. Additionally patient will need further testing regarding hepatitis B core antibody being reactive. Patient seen in collaboration with Dr. Rivero Subjective: Course reviewed with nursing staff Patient interviewed and examined All labs, imaging and other results reviewed The patient feels ok, tolerating diet well. No overt signs of GI bleed Hgb better today. 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 EYES: Pupils equal reactive to light and accommodation, full extraocular movements, sclera clear, non-icteric, no discharge. EARS/NOSE AND THROAT: Ears normal, nose normal, oropharynx normal, oral membranes well hydrated without lesions. NECK: Supple, no masses, thyroid normal, JVP within normal limits, carotids normal without bruits. CHEST: Inspection within normal limits. CARDIOVASCULAR: Heart: Regular rate and rhythm, no murmurs, gallops or rubs. Peripheral pulses present within normal limits, no cyanosis, clubbing or edemas. No pulsatile abdominal mass RESPIRATORY: Lungs clear to auscultation and percussion, no wheezing, no rubs GASTROINTESTINAL AND LIVER: Abdomen: Soft, epigastric tenderness, non-distended, no hernias, no masses, no organomegaly, no ascites, no guarding, no rebound tenderness, normoactive bowel sounds. Rectal: Deferred. GENITOURINARY: [Male genitalia within normal limits. EXTREMITIES: No cyanosis, clubbing or edema. Result Diagram: 01/27/19 0509 01/27/19 0509 Results 24hrs Laboratory Tests Test 01/27/19 05:09 01/27/19 06:14 White Blood Count 6.7 Red Blood Count 2.37 L Hemoglobin 7.3 L Hematocrit 20.9 L Mean Corpuscular Volume 88.2 Mean Corpuscular Hemoglobin 30.8 Mean Corpuscular Hemoglobin Concent 34.9 Red Cell Distribution Width 13.6 Platelet Count 103 L Mean Platelet Volume 10.8 H Immature Granulocytes % 0.300 Neutrophils % 59.2 Lymphocytes % 32.9 Monocytes % 5.0 Eosinophils % 2.3 Basophils % 0.3 Nucleated Red Blood Cells % 0.0 Immature Granulocytes # 0.020 Neutrophils # 4.0 Lymphocytes # 2.2 Monocytes # 0.3 Eosinophils # 0.2 Basophils # 0.0 Nucleated Red Blood Cells # 0.0 Sodium Level 136 Potassium Level 3.3 L Chloride Level 103 Carbon Dioxide Level 29 Anion Gap 4 L Blood Urea Nitrogen 9 # Creatinine 0.69 Est Glomerular Filtrat Rate mL/min > 60 Glucose Level 86 Calcium Level 7.1 L Phosphorus Level 3.0 Magnesium Level 2.0 Total Bilirubin 0.7 Direct Bilirubin 0.00 Indirect Bilirubin 0.7 Aspartate Amino Transf (AST/SGOT) 97 H Alanine Aminotransferase (ALT/SGPT) 272 H Alkaline Phosphatase 37 L Total Protein 4.6 L Albumin 2.4 L Globulin 2.20 Albumin/Globulin Ratio 1.09 Lab Scanned Report BLOOD TRANSFUSION Exam/Review of Systems Exam Vitals Vital Signs Date Temp Pulse Resp B/P (MAP) Pulse Ox O2 O2 Flow FiO2 Time Delivery Rate 01/27/19 99.0 89 18 93/48 (63) 100 Room Air 14:00 01/26/19 3.0 18:00 Intake and Output 01/26/19 01/26/19 01/27/19 1515:00 23:00 07:00 IntakeIntake Total 520 ml 1011.2 ml BalanceBalance 520 ml 1011.2 ml Results Results 24hrs Laboratory Tests Test 01/27/19 05:09 01/27/19 06:14 White Blood Count 6.7 Red Blood Count 2.37 L Hemoglobin 7.3 L Hematocrit 20.9 L Mean Corpuscular Volume 88.2 Mean Corpuscular Hemoglobin 30.8 Mean Corpuscular Hemoglobin Concent 34.9 Red Cell Distribution Width 13.6 Platelet Count 103 L Mean Platelet Volume 10.8 H Immature Granulocytes % 0.300 Neutrophils % 59.2 Lymphocytes % 32.9 Monocytes % 5.0 Eosinophils % 2.3 Basophils % 0.3 Nucleated Red Blood Cells % 0.0 Immature Granulocytes # 0.020 Neutrophils # 4.0 Lymphocytes # 2.2 Monocytes # 0.3 Eosinophils # 0.2 Basophils # 0.0 Nucleated Red Blood Cells # 0.0 Sodium Level 136 Potassium Level 3.3 L Chloride Level 103 Carbon Dioxide Level 29 Anion Gap 4 L Blood Urea Nitrogen 9 # Creatinine 0.69 Est Glomerular Filtrat Rate mL/min > 60 Glucose Level 86 Calcium Level 7.1 L Phosphorus Level 3.0 Magnesium Level 2.0 Total Bilirubin 0.7 Direct Bilirubin 0.00 Indirect Bilirubin 0.7 Aspartate Amino Transf (AST/SGOT) 97 H Alanine Aminotransferase (ALT/SGPT) 272 H Alkaline Phosphatase 37 L Total Protein 4.6 L Albumin 2.4 L Globulin 2.20 Albumin/Globulin Ratio 1.09 Lab Scanned Report BLOOD TRANSFUSION Medications Medication Current Medications IV Flush (NS 3 ml) 3 ml PER PROTOCOL IV ; Start 01/25/19 at 10:30 Ondansetron HCl (Zofran Inj) 4 mg Q6H PRN IV NAUSEA/VOMITING; Start 01/25/19 at 10:30 Chlordiazepoxide (Librium) 25 mg QID PO Last administered on 01/27/19at 12:36; Admin Dose 25 MG; Start 01/25/19 at 13:00 Lorazepam (Ativan) 1 mg Q2H PRN IV Anxiety; Start 01/25/19 at 10:30 Multivitamins 10 ml/Thiamine HCl 100 mg/Folic Acid 1 mg/Sodium Chloride 1,011.2 ml @ 125 mls/ hr DAILY@09 IVPB Last administered on 01/27/19at 08:51; Admin Dose 125 MLS/HR; Start 01/25/19 at 11:00 Pantoprazole (Protonix Iv) 40 mg BID@06,18 IV Last administered on 01/27/19at 06:12; Admin Dose 40 MG; Start 01/25/19 at 18:00 Sucralfate (Carafate Susp) 1 gm QID PO Last administered on 01/27/19at 12:36; Admin Dose 1 GM; Start 01/25/19 at 20:10 Morphine Sulfate (morphine) 2 mg Q2H PRN IV SEVERE PAIN LEVEL 7-10 Last administered on 01/26/19 01:05; Admin Dose 2 MG; Start 01/26/19 at 01:00 AWA BARCLAY Jan 27, 2019 16:17
--- NOTE | 2019-01-27 18:04 | PN ---
Date/Time of Note Date/Time of Note DATE: 01/27/19 TIME: 18:01 Assessment/Plan VTE Prophylaxis Risk score (from Ns)>0 risk: 1 SCD applied (from [facility] [place]): Yes Pharmacological prophylaxis: NA/contraindicated Pharm contraindication: bleeding Lines/Catheters IV Catheter Type (from [facility]): Peripheral IV Urinary Cath still in place: No Assessment/Plan Hospital Course 38-year-old male with history of alcoholism who came to the emergency room with multiple episodes of hematemesis and a few episodes of melena, who will be admitted to inpatient setting for further treatment and evaluation. 1. Severe anemia secondary to acute blood loss from upper GI bleed -Patient with hematemesis and melena -EGD shows ulceration in the fundus of the stomach as well as severe erosive gastritis, biopsy shows H. pylori -Continue Carafate and Protonix -Will DC with antibiotics for H. pylori -Monitor hemoglobin overnight -Status post transfusion of 1 unit 2. 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 Alcoholism. -Current heavy alcohol drinker. -DC Librium. -Continue IV lorazepam as needed for any active DTs. -Continue multivitamins. -Social work consult DC planning: Anticipate DC home tomorrow Result Diagram: 01/27/19 0509 01/27/19 0509 Results 24hrs Laboratory Tests Test 01/27/19 05:09 01/27/19 06:14 White Blood Count 6.7 Red Blood Count 2.37 L Hemoglobin 7.3 L Hematocrit 20.9 L Mean Corpuscular Volume 88.2 Mean Corpuscular Hemoglobin 30.8 Mean Corpuscular Hemoglobin Concent 34.9 Red Cell Distribution Width 13.6 Platelet Count 103 L Mean Platelet Volume 10.8 H Immature Granulocytes % 0.300 Neutrophils % 59.2 Lymphocytes % 32.9 Monocytes % 5.0 Eosinophils % 2.3 Basophils % 0.3 Nucleated Red Blood Cells % 0.0 Immature Granulocytes # 0.020 Neutrophils # 4.0 Lymphocytes # 2.2 Monocytes # 0.3 Eosinophils # 0.2 Basophils # 0.0 Nucleated Red Blood Cells # 0.0 Sodium Level 136 Potassium Level 3.3 L Chloride Level 103 Carbon Dioxide Level 29 Anion Gap 4 L Blood Urea Nitrogen 9 # Creatinine 0.69 Est Glomerular Filtrat Rate mL/min > 60 Glucose Level 86 Calcium Level 7.1 L Phosphorus Level 3.0 Magnesium Level 2.0 Total Bilirubin 0.7 Direct Bilirubin 0.00 Indirect Bilirubin 0.7 Aspartate Amino Transf (AST/SGOT) 97 H Alanine Aminotransferase (ALT/SGPT) 272 H Alkaline Phosphatase 37 L Total Protein 4.6 L Albumin 2.4 L Globulin 2.20 Albumin/Globulin Ratio 1.09 Lab Scanned Report BLOOD TRANSFUSION Subjective 24 Hr Interval Summary Constitutional: no complaints Exam/Review of Systems Exam Vitals Vital Signs Date Temp Pulse Resp B/P (MAP) Pulse Ox O2 O2 Flow FiO2 Time Delivery Rate 01/27/19 99.0 89 18 93/48 (63) 100 Room Air 14:00 01/26/19 3.0 18:00 Intake and Output 01/26/19 01/26/19 01/27/19 1515:00 23:00 07:00 IntakeIntake Total 520 ml 1011.2 ml BalanceBalance 520 ml 1011.2 ml Constitutional: alert, oriented Respiratory: clear to auscultation Cardiovascular: regular rate and rhythm Gastrointestinal: soft; No distended Musculoskeletal: nl extremities to inspection Results Results 24hrs Laboratory Tests Test 01/27/19 05:09 01/27/19 06:14 White Blood Count 6.7 Red Blood Count 2.37 L Hemoglobin 7.3 L Hematocrit 20.9 L Mean Corpuscular Volume 88.2 Mean Corpuscular Hemoglobin 30.8 Mean Corpuscular Hemoglobin Concent 34.9 Red Cell Distribution Width 13.6 Platelet Count 103 L Mean Platelet Volume 10.8 H Immature Granulocytes % 0.300 Neutrophils % 59.2 Lymphocytes % 32.9 Monocytes % 5.0 Eosinophils % 2.3 Basophils % 0.3 Nucleated Red Blood Cells % 0.0 Immature Granulocytes # 0.020 Neutrophils # 4.0 Lymphocytes # 2.2 Monocytes # 0.3 Eosinophils # 0.2 Basophils # 0.0 Nucleated Red Blood Cells # 0.0 Sodium Level 136 Potassium Level 3.3 L Chloride Level 103 Carbon Dioxide Level 29 Anion Gap 4 L Blood Urea Nitrogen 9 # Creatinine 0.69 Est Glomerular Filtrat Rate mL/min > 60 Glucose Level 86 Calcium Level 7.1 L Phosphorus Level 3.0 Magnesium Level 2.0 Total Bilirubin 0.7 Direct Bilirubin 0.00 Indirect Bilirubin 0.7 Aspartate Amino Transf (AST/SGOT) 97 H Alanine Aminotransferase (ALT/SGPT) 272 H Alkaline Phosphatase 37 L Total Protein 4.6 L Albumin 2.4 L Globulin 2.20 Albumin/Globulin Ratio 1.09 Lab Scanned Report BLOOD TRANSFUSION Medications Medication Current Medications IV Flush (NS 3 ml) 3 ml PER PROTOCOL IV ; Start 01/25/19 at 10:30 Ondansetron HCl (Zofran Inj) 4 mg Q6H PRN IV NAUSEA/VOMITING; Start 01/25/19 at 10:30 Chlordiazepoxide (Librium) 25 mg QID PO Last administered on 01/27/19 17:24; Admin Dose 25 MG; Start 01/25/19 at 13:00 Lorazepam (Ativan) 1 mg Q2H PRN IV Anxiety; Start 01/25/19 at 10:30 Multivitamins 10 ml/Thiamine HCl 100 mg/Folic Acid 1 mg/Sodium Chloride 1,011.2 ml @ 125 mls/ hr DAILY@09 IVPB Last administered on 01/27/19 08:51; Admin Dose 125 MLS/HR; Start 01/25/19 at 11:00 Pantoprazole (Protonix Iv) 40 mg BID@06,18 IV Last administered on 01/27/19 17:24; Admin Dose 40 MG; Start 01/25/19 at 18:00 Sucralfate (Carafate Susp) 1 gm QID PO Last administered on 01/27/19 17:24; Admin Dose 1 GM; Start 01/25/19 at 20:10 Morphine Sulfate (morphine) 2 mg Q2H PRN IV SEVERE PAIN LEVEL 7-10 Last administered on 01/26/19 01:05; Admin Dose 2 MG; Start 01/26/19 at 01:00 JT LAI Jan 27, 2019 18:04
[2019-01-27 20:00] VITALS: BP 101/61; PULSE 92; RESP 18
[2019-01-28 02:00] VITALS: BP 109/66; PULSE 86; RESP 18
[2019-01-28] MEDS: PANTOPRAZOLE 40 MG INJ IV SCH (05:54)
[2019-01-28 07:54] VITALS: BP 101/58; PULSE 80; RESP 18
[2019-01-28] MEDS: SUCRALFATE (100 MG/ML) 10ML CUP PO SCH ×2 (10:01→14:49)
[2019-01-28] MEDS: MULTIVITAMINS 10 ML, THIAMINE 100 MG, FOLIC ACID 1 MG in SOD CHLORIDE 0.9% 1,000 ML IVPB SCH (10:09)
[2019-01-28] MEDS ORDERED: SUCR1TAB56 PO (11:27)
--- NOTE | 2019-01-28 11:29 | PDOCDIS ---
Discharge Instructions CONDITION [id number] Patient Condition: [id number] Good HOME CARE INSTRUCTIONS: [id number] Diet Instructions: [id number] Regular ACTIVITY: [id number] Activity Restrictions: [id number] No Restrictions FOLLOW UP/APPOINTMENTS Follow-up Plan FOLLOW UP WITH DR OHARA OF GI, FOLLOW UP WITH A PCP IN 1-2 WEEKS JT LAI Jan 28, 2019 11:29
[2019-01-28 14:00] VITALS: BP 103/59; PULSE 85; RESP 18
--- NOTE | 2019-01-28 15:53 | DS ---
Date/Time of Note Date/Time of Note DATE: 01/28/19 TIME: 15:50 Discharge Summary Admission/Discharge Info Admit Date/Time Jan 25, 2019 at 08:17 Discharge Date/Time January 28, 2019 Discharge Diagnosis 38-year-old male with history of alcoholism who came to the emergency room with multiple episodes of hematemesis and a few episodes of melena, who will be admitted to inpatient setting for further treatment and evaluation. 1. Severe anemia secondary to acute blood loss from upper GI bleed -Patient with hematemesis and melena -EGD shows ulceration in the fundus of the stomach as well as severe erosive gastritis, biopsy shows H. pylori -Continue Carafate and Protonix -DC with antibiotics for H. pylori -Status post transfusion of 1 unit 2. 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 Alcoholism. -Current heavy alcohol drinker. -DC Librium. -Status post multivitamins. -Social work consult -Alcohol cessation strongly advised Patient Condition: Good Hospital Course Patient is a 38-year-old French male with history of alcoholism who came to the emergency room with multiple episodes of hematemesis and a few episodes of melena. Patient was seen by GI and EGD showed ulceration in the fundus of the stomach as well as severe erosive gastritis, biopsy showed H. pylori. Patient w as placed on Carafate and Protonix and received 1 unit of blood. Patient did have transaminitis secondary to alcohol hepatitis, viral and autoimmune panels were negative. Patient was strongly advised to stop drinking, patient was prescribed antibiotics for H. pylori per GI. Patient was spoken to with a French melter caster. On the day of discharge patient's vitals, labs and exam are stable. Home Meds Active Scripts Sucralfate* (Carafate*) 1 Gm Tab, 1 GM PO BID for 30 Days, #60 TAB Prov:JT LAI 01/28/19 Reported Medications Mag Hydrox/Al Hydrox/Simeth (Antacid Liquid) 355 Ml Oral.susp, 30 ML PO PC MEALS, BOT 01/25/19 Cyanocobalamin/FA/Pyridoxine (Folbee Tablet) 1 Each Tablet, 1 EACH PO DAILY, TAB SUGAR & LACTOSE FREE 01/25/19 Famotidine* (Famotidine*) 40 Mg Tablet, 20 MG PO BID, #60 TAB 01/25/19 Chlordiazepoxide* (Chlordiazepoxide*) 25 Mg Capsule, 25 MG PO QID, CAP 01/25/19 Follow-up Plan FOLLOW UP WITH DR OHARA OF GI, FOLLOW UP WITH A PCP IN 1-2 WEEKS Primary Care Provider [facility]. Time spent on discharge: > 30 minutes JT LAI Jan 28, 2019 15:53
== END 2019-01-28 16:06 | disposition home or self-care (01) | DRG 378 ==
LOC: E/R 06:11 → PP2 08:17
PROVIDERS: ADMIT Internal Medicine; ATTEND Internal Medicine
PROC: 0DB68ZX Excision of Stomach, Via Natural or Artificial Opening Endoscopic, Diagnostic (ICD-10-PCS; 2019-01-26)
PROC: 30233N1 Transfusion of Nonautologous Red Blood Cells into Peripheral Vein, Percutaneous Approach (ICD-10-PCS; principal; 2019-01-26 19:30)
DX: K92.0 Hematemesis (principal); D62 Acute posthemorrhagic anemia; K92.1 Melena; F17.200 Nicotine dependence, unspecified, uncomplicated; F10.20 Alcohol dependence, uncomplicated; E66.9 Obesity, unspecified; Z68.26 Body mass index [BMI] 26.0-26.9, adult; D64.9 Anemia, unspecified; K25.9 Gastric ulcer, unspecified as acute or chronic, without hemorrhage or perforation; Y90.0 Blood alcohol level of less than 20 mg/100 ml; R10.32 Left lower quadrant pain
CPT/HCPCS: 36415; 36430; 74177; 80053; 80061; 80307; 82270; 83036; 83690; 83735; 84100; 84484; 85014; 85018; 85025; 85610; 85730; 86038; 86255; 86704; 86709; 86803; 86850; 86900; 86901; 86920; 87340; 88305; 88312; 93005; 96374; 96375; C9113; J2270; J2405; J3010; J3411; J3480; J7030; J7040; P9016; Q9967